=== PATIENT | female | born 1980 | race Caucasian/White ===

== ENCOUNTER 2016-10-25 12:27 | Inpatient (IN) | payer OTHER ==
[~2016-10-25] VITALS: Ht 172.7 cm; Wt 83.0 kg
[2016-10-25] MEDS ORDERED: BETAMET NA PHOS/AC(6 MG/ML) 5ML INJ IM ONE (13:30)
[2016-10-25] MEDS ORDERED: MAGNESIUM SULFATE 4 GM/100 ML 100 ML IVPB ONE (13:30)
[2016-10-25] MEDS ORDERED: MAGNESIUM SULFATE 2 GM/50 ML 50 ML IVPB ONE (13:30)
[2016-10-25] MEDS ORDERED: LACTATED RINGER'S 1,000 ML IV ONE (13:30)
[2016-10-25 14:38] LABS: ADD SCAN DIFF NO
[2016-10-25 14:39] LABS: BASOPHILS % 0.3 % (0.0-2.0); EOSINOPHILS # 0.1 10^3/ul (0.0-0.5); EOSINOPHILS % 0.9 % (0.0-7.0); HEMATOCRIT 38.1 % (37.0-47.0); HEMOGLOBIN 12.4 g/dl (12.0-16.0); LYMPHOCYTES # 1.3 10^3/ul (0.8-2.9); LYMPHOCYTES % 13.4 % (15.0-51.0); MEAN CORPUSCULAR HEMOGLOBIN 29.2 pg (29.0-33.0); MEAN CORPUSCULAR HGB CONC 32.5 g/dl (32.0-37.0); MEAN CORPUSCULAR VOLUME 89.9 fl (82.0-101.0); MEAN PLATELET VOLUME 10.9 fl (7.4-10.4); MONOCYTE # 0.6 10^3/ul (0.3-0.9); MONOCYTES % 6.1 % (0.0-11.0); NEUTROPHIL # 7.7 10^3/ul (1.6-7.5); NEUTROPHILS % 77.9 % (39.0-77.0); PLATELET COUNT 238 10^3/UL (140-415); RED BLOOD COUNT 4.24 10^6/ul (4.20-5.40); RED CELL DISTRIBUTION WIDTH 13.3 % (11.5-14.5); WHITE BLOOD COUNT 9.9 10^3/ul (4.8-10.8)
[2016-10-25] MEDS: MAGNESIUM SULFATE 20 GM/500 ML 500 ML IV SCH (14:42)
[2016-10-25] MEDS: LACTATED RINGER'S 1,000 ML IV SCH ×2 (14:43→19:53)
[2016-10-25 14:47] LABS: ALBUMIN 3.3 g/dl (3.3-4.9); POTASSIUM 3.9 mmol/L (3.5-5.1)
[2016-10-25 14:50] LABS: ALBUMIN/GLOBULIN RATIO 0.91; BILIRUBIN,INDIRECT 0.2 mg/dl (0-1.1); BILIRUBIN,TOTAL 0.2 mg/dl (0.2-1.3); CREATININE 0.51 mg/dl (0.44-1.00); TOTAL PROTEIN 6.9 g/dl (6.1-8.1)
[2016-10-25 14:51] LABS: CALCIUM 8.7 mg/dl (8.4-10.2)
--- NOTE | 2016-10-25 16:21 | RADRPT ---
PROCEDURE: Limited obstetric ultrasound CLINICAL INDICATION: Pain TECHNIQUE: Multiple transverse and longitudinal grayscale images of the pelvis were obtained mccloud sabdominally and transvaginally.. COMPARISON: same day FINDINGS: The cervix is closed with a length of 4.3 cm. There is a single viable intrauterine gestation. Cardiac activity is present with 123 beats per min la posta. There is a transverse maternal left presentation. The placenta is anterior. There is no evidence for an abruption or placenta previa. There are multiple hypoechoic masses in the anterior uterus, the largest measuring 5.5 cm, consisten t with fibroids. RPTAT: AA IMPRESSION: Cervix length measures 4.3 cm. Multiple fibroids in the anterior uterus. .Travis Kennedy MD, MD Date Time Electronically viewed and signed by .Travis Kennedy MD, MD on 10/25/2016 16:21 .S/
[2016-10-25] MEDS ORDERED: SENNA TAB PO ONE (21:00)
--- NOTE | 2016-10-25 23:31 | HP ---
DATE OF ADMISSION: 10/25/2016 HISTORY OF PRESENT ILLNESS: A 36-year-old female, 4, para 0-0-3-0, estimated date of delive ry 01/13/2017, at 28 weeks and 4 days gestation was referred from Perinatology for admission due to labor. PAST MEDICAL HISTORY: Unremarkable. PAST SURGICAL HISTORY: Myomectomy. ALLERGIES: NO KNOWN ALLERGIES. FAMILY HISTORY: Diabetes. PHYSICAL EXAMINATION: VITAL SIGNS: The patient is afebrile. Vital signs stable. HEAD, NECK AND CHEST: Within normal limits. ABDOMEN: Soft, nontender and gravid. EXTREMITIES: Within normal limits. NEUROLOGIC: Within normal limits. PELVIC: On external monitoring, contractions are noted. IMPRESSION: at 28 weeks and 4 days with premature contractions. PLAN: Admit. Intravenous magnesium sulfate for tocolysis, intramuscular betamethasone for jay ng maturity. Perinatology consultation. Dictated By: KORINA MONET/SONALI Conf#: [id number] DID#: [id number]
[2016-10-26] MEDS: MAGNESIUM SULFATE 20 GM/500 ML 500 ML IV SCH ×3 (00:47→21:11)
[2016-10-26] MEDS: MULTIVIT/MIN/FOLATE/IRON/PREN TAB PO SCH (08:45)
[2016-10-26] MEDS: LACTATED RINGER'S 1,000 ML IV SCH ×2 (09:11→21:09)
[2016-10-26 09:49] VITALS: BP 131/59; PULSE 118; RESP 18
[2016-10-26 09:58] VITALS: BP 131/59; PULSE 118; RESP 18
[2016-10-26 10:10] VITALS: Ht 172.7 cm; Wt 83.0 kg
[2016-10-26] MEDS ORDERED: ACETAMINOPHEN 325 MG TAB PO PRN ×2 (12:00)
[2016-10-26] MEDS ORDERED: BETAMET NA PHOS/AC(6 MG/ML) 5ML INJ IM ONE (14:00)
--- NOTE | 2016-10-26 21:39 | QN ---
Documentation Comment No complaint Afebrile VSS Strip Appropriate for GA Continue with IV magnesium sulfate. KORINA OWENS MD Oct 26, 2016 21:39
--- NOTE | 2016-10-26 22:32 | CONS ---
DATE OF ADMISSION: 10/25/2016 DATE OF CONSULTATION: 10/26/2016 HISTORY OF PRESENT ILLNESS: The patient is a 36-year-old G1 who was admitted from perinatology clin ic because of labor and Fibronectin was done at the hospital which is positive. Cervi pablo length was measured and it was 4.3 cm. She is currently at 28 weeks and 4 days. She complains of john about a week, worsening for the past 2 days prior to admission. She was started on m agnesium sulfate, given betamethasone. At this time she does not feel any contractions and she feel s good. Second dose of betamethasone is due tonight. Her history is overall negative. PHYSICAL EXAMINATION: VITAL SIGNS: Stable. Physical examination deferred. heart tones reassuring. Contractions none. Ultrasound as stated above. IMPRESSION: Intrauterine at 28 weeks and 4 days with labor, on magnesium sulfate, status post betamethasone x1. She is to receive her second dose of betamethasone tonight. RECOMMENDATIONS: 1. Please continue with the magnesium sulfate after the second dose of betamethasone either tonight or tomorrow. 2. She has some complaint of some acid reflux for which Pepcid would be beneficial. 3. She does have some rashes on her areas covered by the gown and the sheet for which I think SHE I S ALLERGIC TO THE GARMENTS AND THE SHEETS PROVIDED BY THE HOSPITAL. She can have some brought to he r from home. After magnesium sulfate is stopped, if it is stopped tonight, she can be discharged home tomorrow if she remains stable. If it is discontinued tomorrow morning, she can be watched for a few hours and then discharged home. After discharge home, please schedule an appointment with perinatology clini c for transvaginal cervical length and growth in 2 to 3 weeks. Just check magnesium levels to make sure it remains therapeutic but not too high. Dictated By: HAY MENDIETA/SONALI Conf#: [id number] DID#: [id number]
[2016-10-27] MEDS: MAGNESIUM SULFATE 20 GM/500 ML 500 ML IV SCH (06:27)
[2016-10-27] MEDS: MULTIVIT/MIN/FOLATE/IRON/PREN TAB PO SCH (09:09)
[2016-10-27] MEDS: LACTATED RINGER'S 1,000 ML IV SCH (09:50)
--- NOTE | 2016-10-27 21:11 | DS ---
DATE OF ADMISSION: 10/25/2016 DATE OF DISCHARGE: 10/27/2016 ADMITTING DIAGNOSIS: at 28 weeks and 4 days with premature contractions. HISTORY: A 36-year-old female, 4, para 0-0-3-0 at 28 weeks gestation was admitted per recom mendation of perinatologist due to premature contractions. The patient was admitted on 10/25/2016. The patient was given intravenous magnesium sulfate for tocolysis and intramuscular betamethasone w as given for lung maturity. Per recommendation of perinatologist, magnesium sulfate was disco ntinued after completing the course of betamethasone. The patient has not had any significant contr actions or cervical change while being off magnesium sulfate. The patient is discharged on 10/28/19 17. CONDITION ON DISCHARGE: Stable. DISCHARGE INSTRUCTIONS: DIET: Regular. ACTIVITIES: Modified bed rest at home. MEDICATIONS: Continue with vitamins. FOLLOWUP: In clinic in 1 week. FINAL DIAGNOSES: 1. , not delivered. 2. Threatened labor. Dictated By: KORINA MONET/SONALI Conf#: [id number] DID#: [id number]
== END 2016-10-27 20:25 | disposition home or self-care (01) | DRG 780 ==
LOC: OBG 12:27
PROVIDERS: ADMIT Obstetrics & Gynecology; ATTEND Obstetrics & Gynecology
DX: O47.03 False labor before 37 completed weeks of gestation, third trimester (principal); Z3A.28 28 weeks gestation of pregnancy
CPT/HCPCS: 76817; 80053; 82731; 83735; 85025; 87086; J0702; J3475; J7120